=== PATIENT | female | born 1970 | race Caucasian/White ===

== ENCOUNTER 2023-04-25 10:02 | Outpatient (CLI) | payer BC, MEDICAID, SELFPAY ==
--- NOTE | 2023-04-25 10:11 | XR_ITS ---
WS: [id number] Exam: XR lumbar spine 6V w f/e [id number] Date/Time of Exam: 04/25/2023 10:57 AM Reason For Exam: CHRONIC BACK PAIN No fracture or dislocation. No flexion or extension instability identified. Disc spaces are preserved . Posterior elements are intact. Slight levoscoliosis. Large amount retained stool in the large bowel . IMPRESSION: 1. Mild levoscoliosis otherwise unremarkable lumbar spine study. 2. Marked constipation.
--- NOTE | 2023-04-25 10:14 | MM_ITS ---
WS: [id number] BILATERAL SCREENING DIGITAL TOMOSYNTHESIS MAMMOGRAM WITH CAD HISTORY: SCREENING COMPARISON: None available. Bilateral CC and MLO views with tomosynthesis and synthetic mammography submitted. Computer aided det ection analyzed. Breast composition: There are scattered areas of fibroglandular density. No suspicious masses, microc alcifications or architectural distortion. Benign calcifications in each breast. IMPRESSION: MM/[place] [id number] BI-RADS: 2-Benign FOLLOW UP: 1 Year Follow-up
== END 2023-04-25 10:03 | disposition home or self-care (01) ==
PROVIDERS: Visit Provider Family Medicine
DX: Z12.11 Encounter for screening for malignant neoplasm of colon (principal); M54.9 Dorsalgia, unspecified; G89.29 Other chronic pain
CPT/HCPCS: 72114; 77063; 77067

== ENCOUNTER 2023-06-06 09:02 | Emergency (ER) | payer BC, MEDICAID, SELFPAY ==
[2023-06-06 09:08] VITALS: BP 215/134; PULSE 87; RESP 15; TEMP 36.8; O2SAT 95
--- NOTE | 2023-06-06 09:11 | XR_ITS ---
WS: [id number] Portable AP upright chest, 06/06/2023 Clinical Data: chest pain Comparison: None. Findings: No nodules, masses or effusions are seen. The heart is normal. The pulmonary vascularity is not increased. No pneumonia or pneumothorax is seen. Impression: Negative chest.
--- NOTE | 2023-06-06 09:11 | ED_ITS ---
HPI - General Adult 2 General: Chief complaint: General Medical Stated complaint: high blood pressure Time Seen by Provider: 06/06/23 09:04 Source: patient and EMS Mode of arrival: EMS Limitations: no limitations History of Present Illness: Patient is a 52-year-old female presents to ED today via EMS for evaluation of elevated blood pressure readings. Patient states she has a history of hypertension approximately 3 years ago used to be on medications for this but has not taken them in several years. Patient states she is currently living at the [facility]. Yesterday she noticed that she did not feel well and had a mild headache and some chest pressure and felt tired. She states she checked her blood pressure and readings were 160s/100s. Patient states she continue to monitor pressures throughout the evening and into today. This morning she got readings with systolics over 200s and diastolics in the 130s thus prompting her to call EMS. Upon arrival she is not having any chest pain, shortness of breath, difficulty breathing. She reports a minor headache to the base of her neck. Patient is not currently taking any medications. She has no known past medical history other than the untreated hypertension. Onset (ago): day(s) (yesterday) Relieving factors: none Exacerbating factors: none Associated symptoms: Reports chest pain (resolved upon arrival), headache(s) and other (headache); Deny confusion, dyspnea, malaise, nausea, rash, palpitations, syncope or vomiting Treatments prior to arrival: none Review of Systems 2 Const: Denies: fever(s), chills, body aches, fatigue or malaise Eyes: Denies: change in vision, blurry vision, photophobia, floaters or seeing flashes Card: Reports: chest pain (resolved upon arrival); Denies: palpitations, irregular heart rhythm, edema, swelling of feet/ankles, lightheadedness, syncope, pre-syncope, dyspnea on exertion, orthopnea, leg pain with exertion or acrocyanosis Resp: Denies: dyspnea, productive cough or pain on inspiration GI: Denies: abdominal pain, nausea, vomiting, heartburn or diarrhea : Denies: dysuria Musc: Denies: neck pain, back pain, extremity pain, extremity swelling or joint pain Skin/Breast: Denies: rash Neuro: Reports: headache(s); Denies: numbness in extremities, weakness in extremities, sensory changes, lack of coordination, difficulty walking, frequent falls, dizziness, vertigo, confusion, behavioral changes, Slurred speech present, difficulty communicating thoughts or seizure-like activity Physical Exam 2 Const: COMMON NORMALS: no acute distress, average body habitus, patient oriented x3, no limitations, healthy appearing, alert and well nourished G ENERAL APPEARANCE: cooperative ORIENTATION/CONSCIOUSNESS: Yes awake, Yes oriented to person, Yes oriented to place and Yes oriented to time HENMT: COMMON NORMALS: normocephalic and atraumatic HEAD & SCALP: normal to inspection, normocephalic and atraumatic Eye: COMMON NORMALS: Equal, round and reactive pupils present and EOMs intact bilaterally GENERAL EYE: appearance normal, both eyes and all related structures and normal light reflex PUPIL: Yes Equal, round and reactive pupils present DIRECT OPHTHALMOSCOPY: Yes normal light reflex Neck/C-Spine: COMMON NORMALS: full ROM, no lymphadenopathy, supple, no meningeal signs and no JVD Chest: COMMONS NORMALS: normal inspection of the chest and normal palpation of entire chest wall Resp: COMMON NORMALS: normal respiratory effort and clear to auscultation bilaterally AUSCULTATION: clear to auscultation bilaterally Cardio: COMMON NORMALS: no JVD, regular rate and regular rhythm RATE: r egular rate RHYTHM: regular rhythm GI: COMMON NORMALS: Normal to inspection, nondistended, normoactive bowel sounds present, Soft to palpation, non-tender, No hepatosplenomegaly present and no masses PALPATION: Yes Soft to palpation and Yes No hepatosplenomegaly present : COMMON NORMALS: Yes no CVA tenderness BLADDER/KIDNEY EXAM: Yes no CVA tenderness Back/Pelvis: COMMON NORMALS: no CVA tenderness and thoracic and lumbar spine normal to inspection Extremity: COMMON NORMALS: normal to inspection, capillary refill normal, no clubbing, cyanosis or edema, no calf tenderness and no pedal edema GENERAL: Y es normal exam except as noted Neuro: SAMI COMA SCALE: document GCS findings Sami coma scale eye opening: Spontaneous Sami coma scale verbal response: Orientated Severy coma scale motor response: Obey commands Severy coma scale total score: 15 COMMON NORMALS: patient oriented x3, moves all extremities, no focal motor deficits and no sensory deficits noted SENSORIUM/ORIENTATION: Yes alert, Yes oriented to person, Yes oriented to place and Yes oriented to time MENINGEAL SIGNS: Yes no meningeal signs Skin: COMMON NORMALS: no rashes or lesions noted GENERAL SKIN EXAM: no rashes or lesions noted Course 2 Vital Signs: Vital signs: Vital Signs Temperature 98.3 F 06/06/23 09:08 Pulse Rate 78 06/06/23 10:56 Respiratory Rate 19 H 06/06/23 10:43 Blood Pressure 168/95 06/06/23 10:56 Pulse Oximetry 97 06/06/23 10:56 Oxygen Delivery Me thod Room Air 06/06/23 10:43 MDM - General Adult Medical Decision Making Patient appears in no acute distress. Her workup here is benign. Blood pressure has improved with IV medications. I will start her on metoprolol 25mg twice daily and recommend blood pressure log and follow-up with primary care in 2 weeks. Return precautions given. Medical Records I reviewed the patient's medical records. Lab Data I reviewed the patient's lab results. 06/06/23 09:17 06/06/23 09:17 Laboratory Results WBC 3.91 10^3/uL (3.29-11.43) 06/06/23 09:17 RBC 4.27 10^6/uL (3.85-5.65) 06/06/23 09:17 Hgb 13.30 g/dL (11.27-16.99) 06/06/23 09:17 Hct 39.0 % (36-47) 06/06/23 09:17 MCV 91.3 fl (85-98) 06/06/23 09:17 MCH 31.1 pg (27-33) 06/06/23 09:17 MCHC 34.1 g/dL (30-55) 06/06/23 09:17 RDW 12.6 % (12.1-15.1) 06/06/23 09:17 Plt Count 199 10^3/cmm (157-399) 06/06/23 09:17 MPV 10.4 fL (7.4-10.4) 06/06/23 09:17 Neut % (Auto) 50.9 % 06/06/23 09:17 Lymph % (Auto) 41.4 % 06/06/23 09:17 [place] % (Auto) 5.4 % 06/06/23 09:17 Eos % (Auto) 1.8 % 06/06/23 09:17 Baso % (Auto) 0.5 % 06/06/23 09:17 Neut # (Auto) 1.99 10^3/uL (1.8-7.7) 06/06/23 09:17 Lymph # (Auto) 1.6 10^3/uL (0.8-4.8) 06/06/23 09:17 [place] # (Auto) 0.2 10^3/uL (0.2-0.9) 06/06/23 09:17 Eos # (Auto) 0.1 10^3/uL (0.0-0.8) 06/06/23 09:17 Baso # (Auto) 0.0 10^3/uL (0.0-0.1) 06/06/23 09:17 Nucleated RBC % (auto) 0 % 06/06/23 09:17 Nucleated RBCs # 0.0 /100WBC 06/06/23 09:17 Sodium 138 mmol/L (136-145) 06/06/23 09:17 Potassium 4.4 mmol/L (3.5-5.1) 06/06/23 09:17 Chloride 105 mmol/L (98-107) 06/06/23 09:17 Carbon Dioxide 24 mmol/L (22-29) 06/06/23 09:17 Anion Gap 13.4 (5-19) 06/06/23 09:17 BUN 20 mg/dL (6-20) 06/06/23 09:17 Creatinine 0.7 mg/dL (0.5-0.9) 06/06/23 09:17 GFR Calculation 88.6 mL/min (90-130) L 06/06/23 09:17 Glucose 94 mg/dL (65-115) 06/06/23 09:17 Calculated Osmolality 288 mOsm/kg (285-295) 06/06/23 09:17 Calcium 9.2 mg/dL (8.5-10.5) 06/06/23 09:17 Total Bilirubin 0.2 mg/dL (0.15-1.2) 06/06/23 09:17 AST 15 U/L (0-32) 06/06/23 09:17 ALT 13 U/L (0-33) 06/06/23 09:17 Alkaline Phosphatase 73 U/L (35-105) 06/06/23 09:17 Troponin T Baseline 7 ng/L (0-10) 06/06/23 09:17 Total Protein 7.5 g/dL (6.6-8.7) 06/06/23 09:17 Albumin 4.6 g/dL (3.5-5.2) 06/06/23 09:17 Globulin 2.9 g/dL (1.3-4.6) 06/06/23 09:17 All radiology interpretation(s) finalized by discharge Discharge Plan Discharge Patient Disposition: Home Clinical Impression: Hypertension Qualifiers: Hypertension type: primary hypertension Qualified Code(s): I10 - Essential (primary) hypertension Condition: Stable Prescriptions: New metoprolol tartrate 25 mg tablet 25 mg PO BID Qty: 60 0RF No Action meloxicam 7.5 mg tablet 7.5 mg PO BID PRN (Reason: Pain) Discharge Orders: Discharge ED (Routine); Ordered 06/06/23 Ordered By: Ramonita Kang Patient Instructions: Chronic Hypertension (DC), Hypertension (ED) Activity Restrictions/Additional Instructions: As we discussed start your blood pressure medications and take as directed. Keep a blood pressure log and monitor twice daily. Please follow-up with your PCP Dr. Delgado in approximately 2 weeks so she can review blood pressure log and make any adjustments needed to your blood pressure medications. You need to return to the emergency department for onset of severe chest pain, abdominal pain, difficulty breathing, headache, visual changes, stroke like symptoms, or any other concerns you may have. Coding Level of Care Code ED Type Copy Examiner for Chhaya Jaimes
--- NOTE | 2023-06-06 09:16 | ECG_ITS ---
[facility] Test Date: 2023-06-06 Pat Name: Jayde Jaramillo Department: Room: Gender: Female Maintenance Analyst: : 1970 Requested By: Ramonita Kang Order Number: [id number] Naman MD: Nestor Stinson M.D. Measurements Intervals [place] Rate: 74 P: 112 MS: 184 QRS: 119 QRSD: 86 T: 114 QT: 390 QTc: 433 Interpretive Statements SINUS RHYTHM ARM LEADS REVERSED [INVERTED P AND QRS IN I] No previous ECG available for comparison Electronically Signed On 06-06-2023 17:00:44 CDT by Nestor Stinson M.D. [id number]
[2023-06-06 09:27] LABS: Basophils % 0.5 %; Eosinophils # 0.1 10^3/uL (0.0-0.8); Eosinophils % 1.8 %; Lymphocytes # 1.6 10^3/uL (0.8-4.8); Lymphocytes % 41.4 %; Mean Corpuscular HGB Conc 34.1 g/dL (30-55); Mean Corpuscular Hemoglobin 31.1 pg (27-33); Mean Corpuscular Volume 91.3 fl (85-98); Mean Platelet Volume 10.4 fL (7.4-10.4); Monocytes # 0.2 10^3/uL (0.2-0.9); Monocytes % 5.4 %; Neutrophils # 1.99 10^3/uL (1.8-7.7); Neutrophils % 50.9 %; Nucleated Red Blood Cells % 0 %; Platelet Count 199 10^3/cmm (157-399); Red Blood Count 4.27 10^6/uL (3.85-5.65); Red Cell Distribution Width 12.6 % (12.1-15.1); White Blood Count 3.91 10^3/uL (3.29-11.43)
[2023-06-06 09:47] LABS: Troponin(5th) Baseline 7 ng/L (0-10)
[2023-06-06 09:48] LABS: Alanine Aminotransferase 13 U/L (0-33); Albumin Level 4.6 g/dL (3.5-5.2); Alkaline Phosphatase 73 U/L (35-105); Anion Gap 13.4 (5-19); Aspartate Amino Transferase 15 U/L (0-32); Blood Urea Nitrogen 20 mg/dL (6-20); Calcium 9.2 mg/dL (8.5-10.5); Carbon Dioxide 24 mmol/L (22-29); Chloride 105 mmol/L (98-107); Globulin 2.9 g/dL (1.3-4.6); Glomerular Filtration Rate 88.6 mL/min (90-130); Glucose 94 mg/dL (65-115); Osmolality Calculated 288 mOsm/kg (285-295); Potassium 4.4 mmol/L (3.5-5.1); Sodium 138 mmol/L (136-145); Total Bilirubin 0.2 mg/dL (0.15-1.2); Total Protein 7.5 g/dL (6.6-8.7)
[2023-06-06] MEDS: hyDRALAzine 20 mg/mL INJ 1 mL 10 MG IVP (10:06)
[2023-06-06] MEDS: metoprolol tartrate 1 mg/1 mL SDV 5 mL 5 MG IVP (10:08)
[2023-06-06 10:43] VITALS: BP 197/110; PULSE 79; RESP 19; O2SAT 96
[2023-06-06 10:56] VITALS: BP 168/95; PULSE 78; O2SAT 97
[2023-06-06] MEDS: metoprolol tartrate 25 mg Tablet PO (11:03)
== END 2023-06-06 11:32 | disposition home or self-care (01) ==
PROVIDERS: Emergency Provider Physician Assistant; PCP Family Medicine
DX: I10 Essential (primary) hypertension (principal)
CPT/HCPCS: 71045; 80053; 84484; 85025; 93005; 96374; 96375; 99285; J0360; J3490

== ENCOUNTER 2024-02-03 10:40 | Emergency (ER) | payer BC, MEDICAID, SELFPAY ==
[2024-02-03 10:49] VITALS: BP 250/126; PULSE 104; RESP 18; TEMP 37; O2SAT 99; BMI 25.7
--- NOTE | 2024-02-03 10:55 | ECG_ITS ---
[facility] Test Date: 2024-02-03 Pat Name: Jayde Jaramillo Department: Room: Gender: Female Groundskeeping Maintenance Worker: : 1970 Requested By: Hilton Cary Order Number: [id number] Naman MD: Michelle Pham M.D. Measurements Intervals [place] Rate: 81 P: 76 [place]: 186 QRS: 71 QRSD: 94 T: 69 QT: 375 QTc: 435 Interpretive Statements SINUS RHYTHM Compared to ECG 06/06/2023 09:16:13 No significant changes Electronically Signed On 02-04-2024 01:04:04 ENGINE TESTING SUPERVISOR by Michelle Pham M.D. [id number]
--- NOTE | 2024-02-03 10:57 | XR_ITS ---
WS: [email or web address] Exam: XR coccyx 2V [id number] Date/Time of Exam: 02/03/2024 10:59 AM Reason For Exam: fall No coccygeal fracture or malalignment. The sacrum is intact as visualized. XR/XR coccyx 2V [id number] IMPRESSION: 1. No fracture noted.
--- NOTE | 2024-02-03 10:57 | XR_ITS ---
WS: [email or web address] Exam: XR lumbar spine 2-3V* [id number] Date/Time of Exam: 02/03/2024 10:59 AM Reason For Exam: fall Comparison 04/25/2023. No fracture noted. Disc spaces are preserved. Posterior elements are intact. Mild levoscoliosis. Larg e amount retained stool in the colon. XR/XR lumbar spine 2-3V* [id number] IMPRESSION: 1. No fracture or malalignment. 2. Constipation.
--- NOTE | 2024-02-03 10:58 | ED_ITS ---
HPI - General Adult 2 General: Chief complaint: General Medical Stated complaint: high BP Time Seen by Provider: 02/03/24 10:54 Source: patient Mode of arrival: ambulatory Limitations: no limitations History of Present Illness: 53-year-old female states she has a hist ory high blood pressure she is on lisinopril 30 mg for her blood pressure states it has been running high over the last 2 days and is 250/126 today. She denies any headache denies any chest pain states she did fall down some stairs a week ago and hit her tailbone has been having some pain in her tailbone she rates a 5 out of 10. Associated symptoms: Deny chest pain, dyspnea, headache(s), nausea, rash or vomiting Related Data Home Medications Medication Instructions Recorded Confirmed meloxicam 7.5 mg tablet 7.5 mg PO BID PRN Pain 06/06/23 02/03/24 acetaminophen 325 mg tablet 650 mg PO QID PRN Pain 02/03/24 02/03/24 (Tylenol) diphenhydramine HCl 25 mg tablet 25 mg PO TID PRN allergies 02/03/24 02/03/24 (Benadryl Allergy) famotidine 40 mg tablet 40 mg PO DAILY 02/03/24 02/03/24 ibuprofen 200 mg tablet (Advil) 200 mg PO Q6H PRN Pain 02/03/24 02/03/24 lisinopril 30 mg tablet 30 mg PO DAILY 02/03/24 02/03/24 ropinirole 0.25 mg tablet 0.25 mg PO BEDTIME 02/03/24 02/03/24 Previous Rx's Medication Instructions Recorded metoprolol succinate 50 mg 50 mg PO DAILY #30 tabs 02/03/24 tablet,extended release 24 hr Allergies Allergy/AdvReac Type Severity Reaction Status Date / Time No Known Allergies Allergy Verified 06/06/23 09:13 Review of Systems 2 Const: Denies: fever(s), chills, body aches or change in appetite ENMT: Denies: throat pain or dental pain Card: Denies: chest pain Resp: Denies: dyspnea GI: Denies: abdominal pain, nausea, vomiting or diarrhea Musc: Reports: back pain; Denies: neck pain Skin/Breast: Denies: rash Neuro: Denies: headache(s) Physical Exam 2 Const: COMMON NORMALS: no acute distress, patient oriented x3 and healthy appearing HENMT: COMMON NORMALS: normocephalic and atraumatic HEAD & SCALP: n ormocephalic and atraumatic Eye: COMMON NORMALS: Equal, round and reactive pupils present and EOMs intact bilaterally PUPIL: Yes Equal, round and reactive pupils present Neck/C-Spine: COMMON NORMALS: full ROM and supple Chest: COMMONS NORMALS: normal inspection of the chest and normal palpation of entire chest wall Resp: COMMON NORMALS: normal respiratory effort, No retractions, No use of accessory muscles and clear to auscultation bilaterally AUSCULTATION: clear to auscultation bilaterally Cardio: COMMON NORMALS: regular rate, regular rhythm and No murmurs present (Cardio) RATE: regular rate RHYTHM: regular rhythm GI: COMMON NORMALS: Normal to inspection, nondistended, normoactive bowel sounds present, Soft to palpation, non-tender and no masses PALPATION: Yes Soft to palpation Extremity: COMMON NORMALS: normal to inspection and full ROM Neuro: COMMON NORMALS: patient oriented x3, moves all extremities and no focal motor deficits Psych: COMMON NORMALS: mental status grossly normal, Normal thought process present and cooperative THOUGHT PROCESS: Normal thought process present Skin: COMMON NORMALS: no rashes or lesions noted and no wounds GENERAL SKIN EXAM: no rashes or lesions noted Course 2 Vital Signs: Vital signs: Vital Signs Temperature 98.6 F 02/03/24 10:49 Pulse Rate 87 02/03/24 11:30 Respiratory Rate 16 02/03/24 11:21 Blood Pressure 185/114 02/03/24 11:30 Pulse Oximetry 98 02/03/24 11:30 Oxygen Delivery Me thod Room Air 02/03/24 11:30 MDM - General Adult Medical Decision Making Patient presents with hypertension blood pressure here is improved she asymptomatic blood work EKG is normal she had some tailbone pain from a fall a week ago x-ray shows no fracture we will start on metoprolol she is to log her blood pressure she has follow-up with her primary care doctor return if worsening she understands agrees to plan Medical Records I reviewed the patient's medical records. Lab Data I reviewed the patient's lab results. 02/03/24 11:15 02/03/24 11:15 Radiology Impressions Coccyx X-Ray 02/03/24 10:57 IMPRESSION: 1. No fracture noted. Lumbar Spine X-Ray 02/03/24 10:57 IMPRESSION: 1. No fracture or malalignment. 2. Constipation. Laboratory Results WBC 4.89 10^3/uL (3.29-11.43) 02/03/24 11:15 RBC 4.01 10^6/uL (3.85-5.65) 02/03/24 11:15 Hgb 12.40 g/dL (11.27-16.99) 02/03/24 11:15 Hct 36.8 % (36-47) 02/03/24 11:15 MCV 91.8 fl (85-98) 02/03/24 11:15 MCH 30.9 pg (27-33) 02/03/24 11:15 MCHC 33.7 g/dL (30-55) 02/03/24 11:15 RDW 11.9 % (12.1-15.1) L 02/03/24 11:15 Plt Count 191 10^3/cmm (157-399) 02/03/24 11:15 MPV 10.2 fL (7.4-10.4) 02/03/24 11:15 Neut % (Auto) 76.7 % 02/03/24 11:15 Lymph % (Auto) 17.4 % 02/03/24 11:15 [place] % (Auto) 4.7 % 02/03/24 11:15 Eos % (Auto) 0.6 % 02/03/24 11:15 Baso % (Auto) 0.4 % 02/03/24 11:15 Neut # (Auto) 3.75 10^3/uL (1.8-7.7) 02/03/24 11:15 Lymph # (Auto) 0.9 10^3/uL (0.8-4.8) 02/03/24 11:15 [place] # (Auto) 0.2 10^3/uL (0.2-0.9) 02/03/24 11:15 Eos # (Auto) 0.0 10^3/uL (0.0-0.8) 02/03/24 11:15 Baso # (Auto) 0.0 10^3/uL (0.0-0.1) 02/03/24 11:15 Nucleated RBC % (auto) 0 % 02/03/24 11:15 Nucleated RBCs # 0.0 /100WBC 02/03/24 11:15 Sodium 136 mmol/L (136-145) 02/03/24 11:15 Potassium 3.9 mmol/L (3.5-5.1) 02/03/24 11:15 Chloride 102 mmol/L (98-107) 02/03/24 11:15 Carbon Dioxide 24 mmol/L (22-29) 02/03/24 11:15 Anion Gap 13.9 (5-19) 02/03/24 11:15 BUN 10 mg/dL (6-20) 02/03/24 11:15 Creatinine 0.7 mg/dL (0.5-0.9) 02/03/24 11:15 GFR Calculation 88.2 mL/min (90-130) L 02/03/24 11:15 Glucose 117 mg/dL (65-115) H 02/03/24 11:15 Calculated Osmolality 282 mOsm/kg (285-295) L 02/03/24 11:15 Calcium 9.4 mg/dL (8.5-10.5) 02/03/24 11:15 Total Bilirubin 0.2 mg/dL (0.15-1.2) 02/03/24 11:15 AST 13 U/L (0-32) 02/03/24 11:15 ALT 10 U/L (0-33) 02/03/24 11:15 Alkaline Phosphatase 70 U/L (35-105) 02/03/24 11:15 Total Protein 7.5 g/dL (6.6-8.7) 02/03/24 11:15 Albumin 4.3 g/dL (3.5-5.2) 02/03/24 11:15 Globulin 3.2 g/dL (1.3-4.6) 02/03/24 11:15 No radiology studies performed this visit EKG Data EKG 1: I personally reviewed and interpreted this EKG as follows: EKG interpretation date: 02/03/24 EKG interpretation time: 11:00 Computer generated interpretation: Coccyx X-Ray 02/03/24 10:57 IMPRESSION: 1. No fracture noted. Lumbar Spine X-Ray 02/03/24 10:57 IMPRESSION: 1. No fracture or malalignment. 2. Constipation. nsr hr [address] elevation qrs 94 qtc 412 Discharge Plan Discharge Patient Disposition: Home Clinical Impression: Hypertension Condition: Stable Prescriptions: New metoprolol succinate 50 mg tablet extended release 24 hr 50 mg PO DAILY Qty: 30 0RF No Action meloxicam 7.5 mg tablet 7.5 mg PO BID PRN (Reason: Pain) famotidine 40 mg tablet 40 mg PO DAILY ropinirole 0.25 mg tablet 0.25 mg PO BEDTIME lisinopril 30 mg tablet 30 mg PO DAILY acetaminophen [Tylenol] 325 mg Tablet 650 mg PO QID PRN (Reason: Pain) diphenhydramine HCl [Benadryl Allergy] 25 mg Tablet 25 mg PO TID PRN (Reason: allergies) ibuprofen [Advil] 200 mg Tablet 200 mg PO Q6H PRN (Reason: Pain) Discharge Orders: Discharge ED (Routine); Ordered 02/03/24 Ordered By: Hilton Cary Referrals: Rosalind Delgado DO [Primary Care Provider] - 4-7 days Discharge Diet: Advance as tolerated Discharge Activity: Resume usual activity Patient Instructions: Hypertension (ED) Coding Level of Care Code ED Field Hauler for Chhaya Jaimes
[2024-02-03 11:19] VITALS: BP 208/129; PULSE 83; RESP 16; O2SAT 97
[2024-02-03] MEDS: labetalol 5 mg/mL SDV 20mL 10 MG IVP (11:20)
[2024-02-03 11:21] VITALS: RESP 16; O2SAT 97
[2024-02-03] MEDS: morphine 4 mg/mL SDV 1 mL IVP (11:21)
[2024-02-03 11:30] VITALS: BP 185/114; PULSE 87; O2SAT 98
[2024-02-03 11:34] LABS: Basophils % 0.4 %; Eosinophils % 0.6 %; Hematocrit 36.8 % (36-47); Lymphocytes # 0.9 10^3/uL (0.8-4.8); Lymphocytes % 17.4 %; Mean Corpuscular HGB Conc 33.7 g/dL (30-55); Mean Corpuscular Hemoglobin 30.9 pg (27-33); Mean Corpuscular Volume 91.8 fl (85-98); Mean Platelet Volume 10.2 fL (7.4-10.4); Monocytes # 0.2 10^3/uL (0.2-0.9); Monocytes % 4.7 %; Neutrophils # 3.75 10^3/uL (1.8-7.7); Neutrophils % 76.7 %; Nucleated Red Blood Cells % 0 %; Platelet Count 191 10^3/cmm (157-399); Red Blood Count 4.01 10^6/uL (3.85-5.65); Red Cell Distribution Width 11.9 % (12.1-15.1); White Blood Count 4.89 10^3/uL (3.29-11.43)
[2024-02-03 11:51] LABS: Alanine Aminotransferase 10 U/L (0-33); Albumin Level 4.3 g/dL (3.5-5.2); Alkaline Phosphatase 70 U/L (35-105); Anion Gap 13.9 (5-19); Aspartate Amino Transferase 13 U/L (0-32); Blood Urea Nitrogen 10 mg/dL (6-20); Calcium 9.4 mg/dL (8.5-10.5); Carbon Dioxide 24 mmol/L (22-29); Chloride 102 mmol/L (98-107); Globulin 3.2 g/dL (1.3-4.6); Glomerular Filtration Rate 88.2 mL/min (90-130); Glucose 117 mg/dL (65-115); Osmolality Calculated 282 mOsm/kg (285-295); Potassium 3.9 mmol/L (3.5-5.1); Sodium 136 mmol/L (136-145); Total Bilirubin 0.2 mg/dL (0.15-1.2); Total Protein 7.5 g/dL (6.6-8.7)
[2024-02-03] MEDS: hyDRALAzine 20 mg/mL INJ 1 mL 10 MG IVP (11:52)
[2024-02-03 12:00] VITALS: BP 129/84; PULSE 76; RESP 16; O2SAT 98
[2024-02-03 12:23] VITALS: BP 129/84; PULSE 59; O2SAT 98
== END 2024-02-03 12:25 | disposition home or self-care (01) ==
PROVIDERS: Emergency Provider Emergency Medicine; PCP Family Medicine
DX: I10 Essential (primary) hypertension (principal)
CPT/HCPCS: 72100; 72220; 80053; 85025; 93005; 96374; 96375; 99285; J0360; J2270; J3490

== ENCOUNTER 2024-11-16 09:24 | Outpatient (CLI) | payer BC, MEDICAID, SELFPAY ==
--- NOTE | 2024-11-16 09:32 | MR_ITS ---
WS: [id number] MRCP (MAGNETIC RESONANCE CHOLANGIOPANCREATOGRAPHY) HISTORY: Abnormal levels of other serum enzymes COMPARISON: None available. TECHNIQUE: Multiple sequences are performed to evaluate the intra and extrahepatic ducts. No intrahepatic biliary ducts. Common bile duct is normal at 8 mm. Common bile duct tapers normally to the ampulla of Vater. No intraluminal filling defects. Pancreatic duct is also normal. Liver is normal size. Mild hepatic steatosis. Gallbladder has been removed. Normal spleen. No adrenal mass. Pancreas is normal. No pancreatic duct dilatation. No ascites or adenopathy. No pleural effusions. Visualized GI tract in the upper abdomen is negative. MR/MR MRCP 08400 IMPRESSION: 1. Status post cholecystectomy. 2. No intrahepatic or extrahepatic biliary duct dilatation. 3. Normal common bile duct at 8 mm. 4. Mild hepatic steatosis.
== END 2024-11-16 09:25 | disposition home or self-care (01) ==
LOC: RAD 09:26
PROVIDERS: PCP Family Medicine; Visit Provider Nurse Practitioner Family
DX: R74.8 Abnormal levels of other serum enzymes (principal); K76.0 Fatty (change of) liver, not elsewhere classified; Z90.49 Acquired absence of other specified parts of digestive tract
CPT/HCPCS: 74181

== ENCOUNTER 2024-12-16 09:14 | Day surgery (SDC) | payer BC, MEDICAID, SELFPAY ==
[2024-12-16 09:34] VITALS: BP 142/86; PULSE 57; RESP 18; TEMP 36.3; O2SAT 99; BMI 24.9
--- NOTE | 2024-12-16 09:46 | W.PM.OPSUD ---
Surgery/Procedure H&P Update DATE OF PROCEDURE: December 16, 2024 DATE H&P PERFORMED: 11/24/24 H&P UPDATE INFORMATION: I have reviewed H&P completed within last 30 days, I have examined patient prior to procedure, No changes to prior documentation, H&P is in [facility] EMR on date indicated and Risks and benefits of the procedure reviewed PLANNED PROCEDURE: Operation Date: 12/16/24 11:40 Proposed Procedures p EGD EGD with Biopsy 23671 R13.10(Not Applicable) - Lamin Alicea MD
--- NOTE | 2024-12-16 10:02 | ANES.PREANE2 ---
Pre-Anesthetic Assessment Height/Weight: Height 1.63 m Weight 65.771 kg Temp Pulse Resp BP Pulse Ox O2 Del Method 97.3 F L 57 L 18 142/86 99 Room Air 12/16/24 09:34 12/16/24 09:34 12/16/24 09:34 12/16/24 09:34 12/16/24 09:34 12/16/24 09:34 Preop Diagnosis: dysphagia Operation Date: 12/16/24 11:40 Proposed Procedures p EGD EGD with Biopsy 35871 R13.10(Not Applicable) - Lamin Alicea MD Familial anesthetic complications: none Was Beta Andrea taken within 24 hours: Yes Was Clonidine taken within 24 hours: N/A Last intake: Intake Last Liquid Date 12/15/24 Last Liquid Time 21:30 Last Solid Date 12/15/24 Last Solid Time 16:00 Social No alcohol and No tobacco Exam alert, oriented x 3, clear to auscultation bilaterally and regular rate & rhythm Airway Cervical ROM: within normal limits Mallampati: Class II Dentition: full Pulmonary None reported CV/HEM Hypertension and None reported (HLD) None reported Hepatic None reported GI Gastroesophageal Reflux Disease protonix Metabolic Hyperlipidemia [facility] None reported Neuropsych None reported Medications/Allergies Home Medications ?Medication ?Instructions ?Recorded ?Confirmed ?Last Taken ?Type acetaminophen 325 mg tablet 650 mg PO QID PRN Pain 02/03/24 12/13/24 02/02/24 History (Tylenol) amlodipine 5 mg tablet 5 mg PO QDAY 11/24/24 12/13/24 12/16/24 History atorvastatin 10 mg tablet 10 mg PO QDAY 11/24/24 12/13/24 12/16/24 History lisinopril 40 mg tablet 40 mg PO QDAY 11/24/24 12/13/24 12/15/24 History metoprolol succinate 100 mg 100 mg PO QDAY 11/24/24 12/13/24 12/16/24 History tablet,extended release 24 hr pantoprazole 40 mg tablet,delayed 40 mg PO BID 11/24/24 12/13/24 12/16/24 History release sucralfate 1 gram tablet 1 g PO QID 11/24/24 12/16/24 12/16/24 History Allergies Allergy/AdvReac Type Severity Reaction Status Date / Time No Known Allergies Allergy Verified 12/16/24 09:31 Current Medications Generic Name Dose Route Start Last Admin Trade Name Freq PRN Reason Stop Dose Admin Sodium Chloride 1,000 mls @ 15 mls/hr 12/16/24 09:28 12/16/24 09:42 Sodium Chloride 0.9% IV 12/17/24 09:27 15 mls/hr .Q24H PRN Administration COLONOSCOPY FLUIDS PFSH Anesthesia Family History (Updated 11/24/24 @ 09:50 by RANDY Landa) Mother Arthritis Degenerative disc disease COPD (chronic obstructive pulmonary disease) Grandmother Stroke Social History (Updated 11/24/24 @ 09:47 by RANDY Landa) Smoking and tobacco/nicotine status: current every day tobacco/nicotine user Alcohol intake: current Alcohol intake frequency: holidays/special occasions only
--- NOTE | 2024-12-16 10:14 | ANES.PREANE2 ---
Pre-Anesthetic Assessment Height/Weight: Height 1.63 m Weight 65.771 kg Temp Pulse Resp BP Pulse Ox O2 Del Method 97.3 F L 57 L 18 142/86 99 Room Air 12/16/24 09:34 12/16/24 09:34 12/16/24 09:34 12/16/24 09:34 12/16/24 09:34 12/16/24 09:34 Preop Diagnosis: dysphagia Operation Date: 12/16/24 11:40 Proposed Procedures p EGD EGD with Biopsy 55068 R13.10(Not Applicable) - Lamin Alicea MD Familial anesthetic complications: none Was Beta Andrea taken within 24 hours: Yes Was Clonidine taken within 24 hours: N/A Last intake: Intake Last Liquid Date 12/15/24 Last Liquid Time 21:30 Last Solid Date 12/15/24 Last Solid Time 16:00 Social Tobacco and No alcohol Exam alert, oriented x 3 and clear to auscultation bilaterally Airway Mallampati: Class II Comments: Comments: missing multiple, states none are loose History/ROS No significant history except as noted Pulmonary None reported CV/HEM Hypertension None reported Hepatic None reported GI dysphagia, GERD, Abdominal pain Metabolic None reported Musc/skel None reported Neuropsych None reported Anesthetic Plan ASA status: 2 Anesthesia: Anesthesia Evaluation and MAC Risk of > 500 ml blood loss (7ml/kg in children): Yes, adequate IV access and fluids planned Medications/Allergies Home Medications ?Medication ?Instructions ?Recorded ?Confirmed ?Last Taken ?Type acetaminophen 325 mg tablet 650 mg PO QID PRN Pain 02/03/24 12/13/24 02/02/24 History (Tylenol) amlodipine 5 mg tablet 5 mg PO QDAY 11/24/24 12/13/24 12/16/24 History atorvastatin 10 mg tablet 10 mg PO QDAY 11/24/24 12/13/24 12/16/24 History lisinopril 40 mg tablet 40 mg PO QDAY 11/24/24 12/13/24 12/15/24 History metoprolol succinate 100 mg 100 mg PO QDAY 11/24/24 12/13/24 12/16/24 History tablet,extended release 24 hr pantoprazole 40 mg tablet,delayed 40 mg PO BID 11/24/24 12/13/24 12/16/24 History release sucralfate 1 gram tablet 1 g PO QID 11/24/24 12/16/24 12/16/24 History Allergies Allergy/AdvReac Type Severity Reaction Status Date / Time No Known Allergies Allergy Verified 12/16/24 09:31 Current Medications Generic Name Dose Route Start Last Admin Trade Name Freq PRN Reason Stop Dose Admin Sodium Chloride 1,000 mls @ 15 mls/hr 12/16/24 09:28 12/16/24 09:42 Sodium Chloride 0.9% IV 12/17/24 09:27 15 mls/hr .Q24H PRN Administration COLONOSCOPY FLUIDS PFSH Anesthesia Family History (Updated 11/24/24 @ 09:[address]) Mother Arthritis Degenerative disc disease COPD (chronic obstructive pulmonary disease) Grandmother Stroke Social History (Updated 11/24/24 @ 09:[address]) Smoking and tobacco/nicotine status: current every day tobacco/nicotine user Alcohol intake: current Alcohol intake frequency: holidays/special occasions only
[2024-12-16 10:57] VITALS: BP 122/71; PULSE 56; RESP 16; TEMP 36.4; O2SAT 96
[2024-12-16 11:08] VITALS: BP 109/66; PULSE 71; RESP 16; O2SAT 95
[2024-12-16 11:21] VITALS: BP 113/80; PULSE 63; RESP 16; O2SAT 98
== END 2024-12-16 11:28 | disposition home or self-care (01) ==
PROVIDERS: PCP Family Medicine; Visit Provider Surgery
PROC: 0DJ08ZZ Inspection of Upper Intestinal Tract, Via Natural or Artificial Opening Endoscopic (ICD-10-PCS; principal; 2024-12-16 11:40)
DX: R13.19 Other dysphagia (principal); K29.50 Unspecified chronic gastritis without bleeding; K44.9 Diaphragmatic hernia without obstruction or gangrene; K29.80 Duodenitis without bleeding; I10 Essential (primary) hypertension; K21.9 Gastro-esophageal reflux disease without esophagitis; F17.200 Nicotine dependence, unspecified, uncomplicated
CPT/HCPCS: 43239; 43249; 88305; 88342; J2704; J7030; J9999